=== PATIENT | female | born 1990 | race Caucasian/White ===

== ENCOUNTER 2018-09-11 14:46 | Emergency (ER) | payer MEDICAID ==
[~2018-09-11] VITALS: Ht 165.1 cm; Wt 60.2 kg
[2018-09-11 15:06] VITALS: BP 126/80; PULSE 71; RESP 20; Ht 165.1 cm; Wt 60.2 kg
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
[2018-09-11] MEDS ORDERED: ACET325T33 PO (18:31)
[2018-09-11] MEDS ORDERED: IBUP-1542 PO (18:31)
[2018-09-11] MEDS ORDERED: BACL10TA PO (18:31)
== END 2018-09-11 19:01 | disposition home or self-care (01) ==
LOC: FTE 14:46
DX: S01.511A Laceration without foreign body of lip, initial encounter (principal); S50.01XA Contusion of right elbow, initial encounter; S80.01XA Contusion of right knee, initial encounter; S80.11XA Contusion of right lower leg, initial encounter; Y04.8XXA Assault by other bodily force, initial encounter
CPT/HCPCS: 99283